=== PATIENT | female | born 1945 | race Caucasian/White ===

== ENCOUNTER → 2018-09-15 11:52 | Outpatient (CLI) | payer OTHER, SELFPAY ==
--- NOTE | 2018-09-15 | DI.MG.S_ITS ---
BILATERAL DIGITAL SCREENING MAMMOGRAM 3D/2D WITH CAD: 09/15/2018 CLINICAL: Routine screening. Family history of breast cancer. Comparison is made to exams dated: 08/26/2017 mammogram, 05/01/2016 mammogram, and 04/12/2015 mammogram - [facility]. There are scattered fibroglandular elements in both breasts. Current study was also evaluated with a Computer Aided Detection (CAD) system. No significant masses, calcifications, or other findings are seen in either breast. There has been no significant interval change. IMPRESSION: NEGATIVE There is no mammographic evidence of malignancy. A 1 year screening mammogram is recommended. This exam was interpreted at Station ID: [id number]. NOTE: For mammograms, a report in lay terms will be sent to the patient. Approximately 15% of breast malignancies will not be visualized mammographically. In the management of a palpable breast mass, a negative mammogram must not discourage biopsy of a clinically suspicious lesion. Electronically Signed By: Hanna condon/domingo:09/15/2018 14:20:53 letter sent: Normal Exam ACR BI-RADS Category 1: Negative 3341F
== END ==
PROVIDERS: Family Provider Family Medicine; PCP Family Medicine; Visit Provider Family Medicine
DX: Z12.31 Encounter for screening mammogram for malignant neoplasm of breast (principal); Z80.3 Family history of malignant neoplasm of breast
CPT/HCPCS: 77063; 77067

== ENCOUNTER 2019-02-25 15:29 | Emergency (ER) | payer OTHER, SELFPAY ==
[2019-02-25 15:50] VITALS: BP 135/79; PULSE 73; RESP 18; TEMP 36.8; O2SAT 99; BMI 26.4
--- NOTE | 2019-02-25 17:44 | DI.RAD.S_ITS ---
PROCEDURE: XR SHOULDER LT MIN 2V INDICATIONS: injury pain TECHNIQUE: 3 views of the shoulder were acquired. COMPARISON: None. FINDINGS: Bones: No fractures or dislocations. No suspicious bony lesions. Visualized ribs appear intact. Soft tissues: No suspicious soft tissue calcifications. There is a questionable radiopacity at the left apex. The lungs are otherwise clear. IMPRESSION: 1. No acute radiographic findings. If pain persists, repeat study in 5-7 days is recommended to exclude occult fracture. 2. Questionable mass at the left apex versus apical scarring. No prior comparisons are available. Consider nonemergent dedicated view of the chest to further characterize this finding. Dictated by: Hanna Tsai M.D. on 02/25/2019 at 18:03 Approved by: Hanna Tsai M.D. on 02/25/2019 at 18:04
--- NOTE | 2019-02-25 17:44 | DI.RAD.S_ITS ---
PROCEDURE: XR HAND LT MIN 3V INDICATIONS: injury, pain TECHNIQUE: 3 views of the hand(s) acquired. COMPARISON: None. FINDINGS: Bones: Severe degenerative changes are present within the interphalangeal joints and the first CMC joint. These most likely represent advanced osteoarthritis; however some erosive changes are also present in the periarticular bones. No acute fracture or dislocation. Soft tissues: No suspicious soft tissue calcifications. IMPRESSION: 1. No acute radiographic findings. If pain persists, repeat study in 5-7 days is recommended to exclude occult fracture. 2. Degenerative changes most likely representing advanced osteoarthritis although a component of erosive arthritis could be considered in the differential. Dictated by: Hanna Tsai M.D. on 02/25/2019 at 18:04 Approved by: Hanna Tsai M.D. on 02/25/2019 at 18:06
[2019-02-25] MEDS: ACETAMINOPHEN 325 MG TABLET 650 MG PO (19:10)
[2019-02-25 19:44] VITALS: BP 142/77; PULSE 57; RESP 15; O2SAT 100
--- NOTE | 2019-02-26 00:58 | ED_ITS ---
HPI - Fall General Chief Complaint: Fall Stated Complaint: GLF, Hit her face, laceration over left eye Time Seen by Provider: 02/25/19 17:56 Source: patient Mode of arrival: ambulatory Limitations: no limitations History of Present Illness HPI Narrative: 73F non smoking female with history of knee pain and hyperlipidemia presents with a mechanical fall resulting in a laceration over her left eye. She has had some numbness in her right foot ever since a knee surgery and her foot got caught on the ground while walking, this caused her to fall forward and strike her forehead on the ground. She has full recall and denies any loss of consciousness nor nausea or vomiting. she has a very minimal headache and denies any focal neurologic findings. She has not taken Coumadin in a few months and has 2 registered, normal INRs in the labs. She was not activated as a modified trauma for this reason. Additionally the patient has a laceration of her left upper lip. It does not cross the vermilion border and is not through and through. When she bites down her teeth all lined up. She states additionally her left hand hurts and there is a bit of swelling on the dorsum of a few of her fingers. Her pain is worse with motion and improves with rest MD complaint: fall Onset (ago): minute(s) Fall from: standing Fall witnessed: yes, by family Place fall occurred: home Loss of consciousness: none Prolonged down time: no Symptoms prior to fall: none Context: tripped/slipped Location of injury: face Related Data Home Medications Medication Instructions Recorded Confirmed ibuprofen 200 mg PO Q6HP #0 02/14/13 01/05/19 aspirin 81 mg tablet,delayed 81 mg PO DAILY 01/05/19 01/05/19 release Previous Rx's Medication Instructions Recorded omeprazole 20 mg PO QDAY #90 tab 05/28/16 fluticasone propionate [Flonase 1 spray INTRANASAL BID #1 bot 10/27/17 Allergy Relief] warfarin 5 mg tablet 5 mg PO DAILY #100 tab 10/04/18 acyclovir 400 mg tablet 400 mg PO SEE INSTRUCTIONS #60 tab 12/03/18 Allergies Allergy/AdvReac Type Severity Reaction Status Date / Time No Known Drug Allergies Allergy Unknown Verified 02/25/19 15:58 [NO KNOWN DRUG ALLERGIES] Review of Systems Constitutional Denies chills, Denies fever(s), Denies lethargy and Denies weakness Eyes Denies change in vision, Denies eye discharge, Denies irritation and Denies loss of vision ENT Ears, Nose, Mouth, and Throat: Denies change in voice, Denies neck pain and Denies sore throat Cardiovascular Denies chest pain, Denies irregular heart rhythm, Denies lightheadedness, Denies palpitations, Denies dyspnea, Denies dyspnea on exertion and Denies orthopnea Respiratory Denies cough, Denies dyspnea, Denies dyspnea on exertion and Denies wheezing Gastrointestinal Gastrointestinal: Denies abdominal pain, Denies change in bowel habits, Denies diarrhea, Denies nausea and Denies vomiting Genitourinary Denies hematuria, Denies flank pain, Denies urinary incontinence and Denies urinary urgency Musculoskeletal Reports joint swelling, Reports limited range of motion and Denies neck pain Integumentary/Breasts Denies pruritus, Denies erythema, Denies rash and Reports wounds Neurologic Denies confusion, Denies loss of vision and Denies weakness Psychiatric Denies anxiety, Denies confusion, Denies depression, Denies homicidal ideation and Denies suicidal ideation Endocrine Denies palpitations Hematologic/Lymphatic Denies easy bruising Allergic/Immunologic Denies wheezing Exam Narrative Exam Narrative: GENERAL: 73-year-old female appears younger than stated age, alert oriented x3, GCS 15 HEAD: A 3 cm deep laceration over left brow. No obvious deformity. No step- off or underlying bony tenderness. minimal active bleeding EYES: Pupils equal round and reactive. Extraocular motions intact. No scleral icterus. No injection or drainage. ENT: 1 cm gaping laceration of the lip without crossing vermilion border Nose without bleeding, purulent drainage or septal hematoma. Throat without erythema, tonsillar hypertrophy or exudate. Uvula midline. Airway patent. NECK: Trachea midline. No JVD or lymphadenopathy. Supple, nontender, no meningeal signs. CARDIOVASCULAR: Regular rate and rhythm without murmurs, gallops, or rubs. RESPIRATORY: Clear to auscultation. Breath sounds equal bilaterally. No wheezes, rales, or rhonchi. GASTROINTESTINAL: Abdomen soft, non-tender, nondistended. No hepato- splenomegaly, or palpable masses. No guarding. EXTREMITIES: Minimal bruising to dorsum of left hand No clubbing, cyanosis, or edema. No joint tenderness, effusion, or edema noted. BACK: Nontender without deformity or crepitance. No flank tenderness. NEURO: AOx3. SKIN: No rash or erythema. Initial Vital Signs Initial Vital Signs: Vital Signs Temperature 98.2 F 02/25/19 15:50 Pulse Rate 73 02/25/19 15:50 Respiratory Rate 18 02/25/19 15:50 Blood Pressure 135/79 02/25/19 15:50 Pulse Oximetry 99 02/25/19 15:50 [facility] Medical History Ankle pain (Chronic ~1999) Eczema (Chronic ~1984) Fibroids (Chronic ~1989) Foot pain (Chronic) GERD (gastroesophageal reflux disease) (Chronic ~2004) Osteoarthritis (Chronic ~1999) Plantar warts (Chronic ~1989) Polymyalgia rheumatica (Chronic ~1997) Recurrent sinusitis (Chronic ~1999) Seasonal allergies (Chronic ~1989) Shoulder pain (Chronic ~1996) Vision disorder (Chronic) Chicken pox (Resolved ~1953) Measles (Resolved ~1952) Mumps (Resolved ~1955) Pneumonia (Resolved ~2006) Rubella (Resolved ~1954) Surgical History Anesthesia (Resolved) History of tonsillectomy (~1952) Status post cholecystectomy (~2010) Status post hysterectomy (~1990) Status post tubal ligation (~1978) Family History (Updated 04/18/15 @ 00:00 by Conversion Provider) Brother Age: 69 Cancer Alcoholic Brother Age: 59 Hypertension Alcoholic Brother Age: 57 History of Klinefelter syndrome Alcoholic Child Age: 40 Hx pulmonary embolism Father Cancer Alcoholic Grandfather Cancer Mother Age: 92 Osteoporosis Hypertension Grandfather Heart disease Alcoholic Grandmother No problems noted. Grandmother No problems noted. Social History Smoking Status: Never smoker Family History Brother Age: 69 Cancer Alcoholic Brother Age: 59 Hypertension Alcoholic Brother Age: 57 History of Klinefelter syndrome Alcoholic Child Age: 40 Hx pulmonary embolism Father Cancer Alcoholic Grandfather Cancer Mother Age: 92 Osteoporosis Hypertension Grandfather Heart disease Alcoholic Grandmother No problems noted. Grandmother No problems noted. Social History (Reviewed 05/04/19 @ 00:59 by NENA Florez Smoking Status: Never smoker Procedures Laceration Repair Laceration 1: Site: face Side (If applicable): left Size (cm): 3 Description: linear Depth: involves muscle layer Local Anesthetic: lidocaine 1% and with bicarb Amount of anesthesia used (mL): 3 Pre-repair: wound explored and irrigated extensively Skin layer closed with: nylon Size (cm): 6-0 Number of sutures: 6 Technique: simple, interrupted Subcutaneous layer closed with: vicryl Size: 5-0 Number of sutures: 2 Technique: simple, interrupted Scores GCS Carmela coma scale eye opening: Spontaneous Fisher coma scale verbal response: Orientated Carmela coma scale motor response: Obey commands Fisher coma scale total score: 15 Course Orders Ordered: ED Orders 02/25/19 17:44 XR hand LT min 3V Stat XR shoulder LT min 2V Stat Discontinued Medications Acetaminophen (Tylenol) 650 mg PO NOW ONE Stop: 02/25/19 19:10 Last Admin: 02/25/19 19:10 Dose: 650 mg Vital Signs - 8 hr 02/25/19 19:44 Pulse Rate 57 L Respiratory Rate 15 Blood Pressure [Left Arm] 142/77 H Pulse Oximetry 100 Discharge Plan Departure Patient Disposition: Home Clinical Impression: Complex laceration of face Qualifiers: Encounter type: initial encounter Qualified Code(s): S01.91XA - Laceration without foreign body of unspecified part of head, initial encounter Laceration of lip Qualifiers: Encounter type: initial encounter Qualified Code(s): S01.511A - Laceration without foreign body of lip, initial encounter Discharge Date/Time: 02/25/19 19:49 Interventions: ED Discharge Assessment Last Done: 02/25/19 19:49 Instructions: DI for Laceration Repair Activity Restrictions/Additional Instructions: Please keep the wound clean and dry to the best of your ability. Please monitor for signs of infection such as redness to the skin or increasing pain. Have the sutures removed by your doctor in about 7 days. If you are unable to get into your doctor, we would be happy to remove the sutures in that same timeframe. Prescriptions: No Action ibuprofen 200 MG tablet 200 mg PO Q6HP Qty: 0 RF: 0 omeprazole 20 MG capsule,delayed release(DR/EC) 20 mg PO QDAY Qty: 90 RF: 3 fluticasone propionate [Flonase Allergy Relief] 9.9 ML spray,suspension 1 spray Intranasal BID Qty: 1 RF: 3 acyclovir [Zovirax] 400 mg tablet 400 mg PO SEE INSTRUCTIONS Qty: 60 RF: 0 warfarin [Coumadin] 5 mg tablet 5 mg PO DAILY Qty: 100 RF: 5 aspirin 81 mg tablet,delayed release (DR/EC) 81 mg PO DAILY RF: 0 Referrals: Dwight Chaney MD [Primary Care Provider] -
== END 2019-02-25 19:49 | disposition home or self-care (01) ==
PROVIDERS: Emergency Provider Emergency Medicine; Family Provider Family Medicine; PCP Family Medicine
DX: S01.112A Laceration without foreign body of left eyelid and periocular area, initial encounter (principal); S01.511A Laceration without foreign body of lip, initial encounter; M79.642 Pain in left hand; W19.XXXA Unspecified fall, initial encounter
CPT/HCPCS: 12052; 73030; 73130; 99283

== ENCOUNTER → 2019-09-28 16:39 | Outpatient (CLI) | payer OTHER, SELFPAY ==
--- NOTE | 2019-09-28 | DI.MG.S_ITS ---
BILATERAL DIGITAL SCREENING MAMMOGRAM 3D/2D WITH CAD: 09/28/2019 CLINICAL: Routine screening. Family history of breast cancer. Comparison is made to exams dated: 09/15/2018 mammogram, 08/26/2017 mammogram, and 05/01/2016 mammogram - Located [facility]. There are scattered fibroglandular elements in both breasts. Current study was also evaluated with a Computer Aided Detection (CAD) system. No significant masses, calcifications, or other findings are seen in either breast. There has been no significant interval change. IMPRESSION: NEGATIVE There is no mammographic evidence of malignancy. A 1 year screening mammogram is recommended. This exam was interpreted at Station ID: [id number]. NOTE: For mammograms, a report in lay terms will be sent to the patient. Approximately 15% of breast malignancies will not be visualized mammographically. In the management of a palpable breast mass, a negative mammogram must not discourage biopsy of a clinically suspicious lesion. Electronically Signed By: Edd doss/domingo:09/28/2019 17:16:30 letter sent: Normal Exam ACR BI-RADS Category 1: Negative 3341F
== END ==
PROVIDERS: Family Provider Family Medicine; PCP Family Medicine; Visit Provider Family Medicine
DX: Z12.31 Encounter for screening mammogram for malignant neoplasm of breast (principal); Z80.3 Family history of malignant neoplasm of breast
CPT/HCPCS: 77063; 77067

== ENCOUNTER → 2020-09-29 13:27 | Outpatient (CLI) | payer OTHER, SELFPAY ==
--- NOTE | 2020-09-29 | DI.MG.S_ITS ---
BILATERAL DIGITAL SCREENING MAMMOGRAM 3D/2D WITH CAD: 09/29/2020 CLINICAL: Routine screening. Family history of breast cancer. Comparison is made to exams dated: 09/28/2019 mammogram, 09/15/2018 mammogram, and 08/26/2017 mammogram - [facility]. There are scattered fibroglandular elements in both breasts. Current study was also evaluated with a Computer Aided Detection (CAD) system. There is a stable benign focal asymmetry in the left breast. There also are benign calcifications in the right breast. Additionally, there are stable benign calcifications in the left breast. No significant masses, calcifications, or other findings are seen in either breast. There has been no significant interval change. IMPRESSION: BENIGN There is no mammographic evidence of malignancy. A 1 year screening mammogram is recommended. This exam was interpreted at Station ID: [id number]. NOTE: For mammograms, a report in lay terms will be sent to the patient. Approximately 15% of breast malignancies will not be visualized mammographically. In the management of a palpable breast mass, a negative mammogram must not discourage biopsy of a clinically suspicious lesion. Electronically Signed By: Luca Cummings acr/domingo:09/30/2020 18:07:25 letter sent: Normal Exam ACR BI-RADS Category 2: Benign Finding(s) 3342F
== END ==
PROVIDERS: Family Provider Family Medicine; PCP Family Medicine; Referring Provider Family Medicine; Visit Provider Family Medicine
DX: Z12.31 Encounter for screening mammogram for malignant neoplasm of breast (principal); Z80.3 Family history of malignant neoplasm of breast
CPT/HCPCS: 77063; 77067

== ENCOUNTER → 2020-10-17 10:17 | Outpatient (CLI) | payer OTHER, SELFPAY ==
[2020-10-17 11:40] LABS: Alanine Aminotransferase 18 IU/L (<35); Albumin Globulin Ratio 1.7 (1.0-2.8); Alkaline Phosphatase 69 U/L (38-126); Aspartate Aminotransferase 26 IU/L (14-36); BUN Creatinine Ratio 26.5 (6-22); Bilirubin Total 0.5 mg/dL (0.2-1.3); Blood Urea Nitrogen 18 mg/dL (7-17); Calcium 9.7 mg/dL (8.4-10.2); Carbon Dioxide 29 mmol/L (22-32); Chloride 106 mmol/L (98-107); Cholesterol 184 mg/dL (140-199); Estimated Glomerular Filt Rate > 60.0 mL/min (>60); Globulin 2.4 g/dL (1.7-4.1); Glucose 95 mg/dL (80-110); HDL Cholesterol 64 mg/dL (40-60); HEMOLYSIS < 15 (0-50); LDL Cholesterol Calculated 105 mg/dL (<100); Potassium 4.4 mmol/L (3.4-5.1); Sodium 139 mmol/L (137-145); Total Protein 6.4 g/dL (6.3-8.2); Triglycerides 77 mg/dL (35-150)
== END ==
PROVIDERS: Family Provider Family Medicine; PCP Family Medicine; Referring Provider Family Medicine; Visit Provider Family Medicine
DX: E78.2 Mixed hyperlipidemia (principal); B00.1 Herpesviral vesicular dermatitis
CPT/HCPCS: 36415; 80053; 80061

== ENCOUNTER → 2020-11-16 10:09 | Outpatient (CLI) | payer OTHER, SELFPAY ==
[2020-11-16 11:24] LABS: COVID19 -Nasal RAPID Negative (Negative)
== END ==
PROVIDERS: Family Provider Family Medicine; PCP Family Medicine; Visit Provider Surgery
DX: Z20.822 Contact with and (suspected) exposure to COVID-19 (principal); Z01.812 Encounter for preprocedural laboratory examination
CPT/HCPCS: 87635; C9803

== ENCOUNTER 2020-11-19 09:52 | Day surgery (SDC) | payer OTHER, SELFPAY ==
[2020-11-19] VITALS (8 sets, daily range): BP systolic 115–138; BP diastolic 56–82; PULSE 50–81; RESP 10–18; TEMP 36.1–36.7; O2SAT 95–100; BMI 28.3
[2020-11-19] MEDS: LACTATED RINGERS 1,000 ML 200 ML IV ×2 (10:22→12:35)
--- NOTE | 2020-11-19 10:45 | PM.PREOP ---
Pre-operative Note COVID-19 COVID-19 status: Negative Interval Note History & Physical reviewed/Exam performed by Physician: Yes Changes to H&P: No
[2020-11-19] MEDS: LIDOCAINE 4% SOLN 50 ML 20 ML TOP (10:51)
[2020-11-19] MEDS: ONDANSETRON 4 MG/2 ML INJ IV ×2 (10:51→11:10)
[2020-11-19] MEDS: fentaNYL 250 MCG/5 ML INJ IV (10:53)
[2020-11-19] MEDS: MIDAZOLAM 5 MG/5 ML VIAL IV (10:53)
[2020-11-19] MEDS: FLUMAZENIL 0.5 MG/5 ML MDV 0.2 MG IV (10:59)
[2020-11-19] MEDS: NALOXONE 1 MG/ML SYRINGE 2 MG IV (11:00)
--- NOTE | 2020-11-19 11:11 | SUR.OPER ---
PATIENTS OXYGEN SATURATIONS DROPPED TO 55% VIA NC, O2 WAS INCREASED, VERBAL STIMUOLATION, 6MM NASAIL AIRWAY WAS PLACED ALONG WITH ORAL, PATIENT WAS AMBU BAGGED, RAPID RESPONSE WAS CALLED TO ENDO, REVERSAL MEDICATIONS GIVEN SEE DEC, OXYGEN SATS INCREASED INTO 90'S AND PATIENT STARTED TO WAKE UP AND RESPOND, ABLE TO MOVE ALL EXPREMITIES, LUNG SOUNDS ARE CLEAR. O2 VIA CANNULA AT 5L PLACED SATS REMAIN IN UPPER 90'S. ANESTHESIA IN ROOM AT THIS TIME.
--- NOTE | 2020-11-19 12:15 | PM.OP.ENDO ---
Operative Date/Time/Diagnoses Date of procedure: 11/19/20 Time of procedure: 12:15 Pre-op diagnosis: dysphagia Post-op diagnosis: other (esopageal ulcer, esophgeal stricture) Procedure & Clinicians Study performed: Esophagoduodenoscopy Esophageal dilatation Same procedure as scheduled: Yes Indications: 74-year-old woman history of GERD with development of dysphagia here for EGD Surgeon: Hung Choe Procedure Notes Procedure in detail: Patient placed in left lateral decubitus position. Time out was performed. Procedural sedation was administered with Versed and Fentanyl. A bite block was placed. The patient had a brief period of hypoxia less than 1 minute and required narcan and flumazenil for reversal. A rapid response was called and anesthesia then provided sedation. the scope was inserted into the mouth. There was notable resistance trying to intubate the cervical esophagus. I switched to the bronchoscope to decrease the resistance, which did pass easily into the esophagus. Subseqeuntyl the EGD scope was comfortably intubated into the esophagus. There was no esopahgeal mass or otherwise abdnormality at the cervical esophagus. The stomach was entered notable for numerous hyperplastic gastric polyps throughout. The pylorus was intubated and the duodenum was normal to the 2nd portion. The scope was retroflexed within the stomach and there was a small hiatal hernia. No ulcers, or gastritis. The scope was withdrawn into the esophagus the Z line was seen at 30 cm from the incisions. There was a Schazchi ring the EGD scope narrowly accommodated it. Biopsy of the GE junction were taken with the forceps. The stricture was dilated under direct visualization to 20 mm H20. Stomach was deflated and scope removed. Patient tolerated procedure well. 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
[2020-11-19] MEDS: METOCLOPRAMIDE 10 MG/2 ML INJ IV (12:33)
--- NOTE | 2020-11-19 13:34 | SUR.PHASEI ---
Late entry: Pt arrived, suctioned for moderate amount of blood-tinged sputum. Pt nauseated, dry heaving, Dr. Choe made aware, Reglan given, queaze ease to bedside, cool wash cloth to forehead. Nausea dry heaves resolved. c/o sore throat, ice chips make discomfort tolerable.
--- NOTE | 2020-11-19 13:56 | SUR.PHASEII ---
Pt met criteria for discharge: VSS, denied significant pain or any nausea, able to drink fluids without difficulty. Discharge instructions discussed with patient, all questions answered. Transported via W/C to private vehicle.
== END 2020-11-19 13:48 | disposition home or self-care (01) ==
PROVIDERS: Family Provider Family Medicine; PCP Family Medicine; Referring Provider Surgery; Visit Provider Surgery
PROC: 0DJ08ZZ Inspection of Upper Intestinal Tract, Via Natural or Artificial Opening Endoscopic (ICD-10-PCS; CPT 43235; principal; 2020-11-19 10:45)
DX: R13.10 Dysphagia, unspecified (principal); K21.9 Gastro-esophageal reflux disease without esophagitis; K44.9 Diaphragmatic hernia without obstruction or gangrene; K22.2 Esophageal obstruction; K22.10 Ulcer of esophagus without bleeding
CPT/HCPCS: 43239; J2250; J2310; J2405; J2765; J3010

== ENCOUNTER → 2021-10-05 12:34 | Outpatient (CLI) | payer OTHER, SELFPAY ==
--- NOTE | 2021-10-05 | DI.MG.S_ITS ---
BILATERAL DIGITAL SCREENING MAMMOGRAM 3D/2D WITH CAD: 10/05/2021 CLINICAL: Routine screening. Family history of breast cancer. Comparison is made to exams dated: 09/29/2020 mammogram, 09/28/2019 mammogram, and 09/15/2018 mammogram - [facility]. There are scattered fibroglandular elements in both breasts. Current study was also evaluated with a Computer Aided Detection (CAD) system. There is a stable benign focal asymmetry in the left breast. There also are benign calcifications in the right breast. Additionally, there are stable benign calcifications in the left breast. No significant masses, calcifications, or other findings are seen in either breast. There has been no significant interval change. IMPRESSION: BENIGN There is no mammographic evidence of malignancy. A 1 year screening mammogram is recommended. This exam was interpreted at Station ID: [id number]. NOTE: For mammograms, a report in lay terms will be sent to the patient. Approximately 15% of breast malignancies will not be visualized mammographically. In the management of a palpable breast mass, a negative mammogram must not discourage biopsy of a clinically suspicious lesion. Electronically Signed By: Edd doss/domingo:10/07/2021 07:45:07 letter sent: Normal Exam ACR BI-RADS Category 2: Benign Finding(s) 3342F
== END ==
PROVIDERS: Family Provider Family Medicine; PCP Family Medicine; Referring Provider Family Medicine; Visit Provider Family Medicine
DX: Z12.31 Encounter for screening mammogram for malignant neoplasm of breast (principal); Z80.3 Family history of malignant neoplasm of breast
CPT/HCPCS: 77063; 77067

== ENCOUNTER → 2022-08-12 11:11 | Outpatient (CLI) | payer OTHER, SELFPAY ==
[2022-08-12 12:10] LABS: Add Manual Diff / Slide Review NO; Basophils Absolute Auto 0 /uL (0-100); Basophils Percent Auto 0.6 % (0-2); Eosinophils Absolute Auto 100 /uL (0-450); Eosinophils Percent Auto 1.3 % (2-4); Hemoglobin 13.6 g/dL (12.0-16.0); Lymphocytes Absolute Auto 1600 /uL (1100-4500); Lymphocytes Percent Auto 34.8 % (25-40); Mean Corpuscular HGB Conc 33.1 % (30-36); Mean Corpuscular Hemoglobin 28.9 PG (26-34); Mean Corpuscular Volume 87.2 fL (80-100); Monocytes Absolute Auto 400 /uL (0-900); Monocytes Percent Auto 7.6 % (3-14); Neutrophils Absolute Auto 2600 /uL (1500-7000); Neutrophils Percent Auto 55.7 % (50-75); Platelet Count 188 X10^3/uL (150-400); Red Cell Distribution Width 13.7 % (11.6-14.8); White Blood Cell Count 4.7 X10^3/uL (4.5-11.0)
[2022-08-12 12:54] LABS: Alanine Aminotransferase 17 IU/L (<35); Albumin 4.1 g/dL (3.5-5.0); Albumin Globulin Ratio 1.6 (1.0-2.8); Alkaline Phosphatase 73 U/L (38-126); Aspartate Aminotransferase 25 IU/L (14-36); BUN Creatinine Ratio 22.4 (6-22); Bilirubin Total 0.5 mg/dL (0.2-1.3); Blood Urea Nitrogen 17 mg/dL (7-17); Calcium 9.3 mg/dL (8.4-10.2); Carbon Dioxide 27 mmol/L (22-32); Chloride 104 mmol/L (98-107); Cholesterol 185 mg/dL (140-199); Estimated Glomerular Filt Rate > 60 mL/min (>60); Globulin 2.6 g/dL (1.7-4.1); Glucose 94 mg/dL (80-110); HDL Cholesterol 60 mg/dL (40-60); HEMOLYSIS < 15 (0-50); LDL Cholesterol Calculated 114 mg/dL (<100); Potassium 4.4 mmol/L (3.4-5.1); Sodium 140 mmol/L (137-145); Total Protein 6.7 g/dL (6.3-8.2); Triglycerides 56 mg/dL (35-150)
== END ==
PROVIDERS: Family Provider Family Medicine; PCP Family Medicine; Referring Provider Family Medicine; Visit Provider Family Medicine
DX: E78.2 Mixed hyperlipidemia (principal); H11.32 Conjunctival hemorrhage, left eye; I82.409 Acute embolism and thrombosis of unspecified deep veins of unspecified lower extremity; K21.9 Gastro-esophageal reflux disease without esophagitis
CPT/HCPCS: 36415; 80053; 80061; 85025

== ENCOUNTER → 2022-08-25 14:00 | Outpatient (CLI) | payer OTHER, SELFPAY ==
--- NOTE | 2022-08-25 14:01 | DI.RAD.S_ITS ---
PROCEDURE: XR HIP W PEL IF DONE LT 2V INDICATIONS: left knee and hip pain TECHNIQUE: AP pelvis with lateral view(s) of the left hip(s). COMPARISON: None. FINDINGS: Bones: No fractures or dislocations. Moderate joint space narrowing bilaterally. There is acetabular roof sclerosis. There is osteophytosis. This is slightly worse of the left hip compared to the right. Pelvic ring appears intact. No suspicious bony lesions. Soft tissues: The visualized bowel gas pattern is normal. No suspicious soft tissue calcifications. IMPRESSION: Severe left hip DJD. Dictated by: Shaun Ambrosio M.D. on 08/25/2022 at 13:40 Approved by: Shaun Ambrosio M.D. on 08/25/2022 at 13:41
--- NOTE | 2022-08-25 14:01 | DI.RAD.S_ITS ---
PROCEDURE: XR KNEE LT 3V INDICATIONS: left knee and hip pain TECHNIQUE: 3 views of the knee were acquired. COMPARISON: [facility], , KNEE 3V RIGHT, 10/27/2017, 14:52. [facility], KNEE 1-2 VIEWS LEFT, 03/18/2010, 13:52. FINDINGS: Bones: No fractures or dislocations. Moderate to severe joint space narrowing. Tricompartmental osteophytosis. These findings are progressed compared to 2009. No suspicious bony lesions. Soft tissues: No joint effusion. No suspicious soft tissue calcifications. IMPRESSION: Severe left knee DJD most pronounced in the medial and patellar compartments. Dictated by: Shaun Ambrosio M.D. on 08/25/2022 at 13:37 Approved by: Shaun Ambrosio M.D. on 08/25/2022 at 13:39
== END ==
PROVIDERS: Family Provider Family Medicine; PCP Family Medicine; Referring Provider Family Medicine; Visit Provider Family Medicine
DX: M17.12 Unilateral primary osteoarthritis, left knee (principal); M16.12 Unilateral primary osteoarthritis, left hip; M25.562 Pain in left knee; M25.552 Pain in left hip; G89.29 Other chronic pain
CPT/HCPCS: 73502; 73562

== ENCOUNTER → 2022-09-27 18:33 | Outpatient (CLI) | payer OTHER, SELFPAY ==
[2022-09-27 19:31] LABS: COVID-19 CEPHEID 4-PLEX PCR POSITIVE (Negative); Influenza A - CEPHEID Flu A NEGATIVE (NEGATIVE); Influenza B - CEPHEID Flu B NEGATIVE (NEGATIVE); Respiratory Syncytial Virus Negative (Negative)
== END ==
PROVIDERS: Family Provider Family Medicine; PCP Family Medicine; Visit Provider Physician Assistant
DX: U07.1 COVID-19 (principal); R50.9 Fever, unspecified; Z20.822 Contact with and (suspected) exposure to COVID-19
CPT/HCPCS: 0241U

== ENCOUNTER → 2022-10-06 11:43 | Outpatient (CLI) | payer OTHER, SELFPAY ==
--- NOTE | 2022-10-06 11:44 | DI.MG.S_ITS ---
BILATERAL DIGITAL SCREENING MAMMOGRAM 3D/2D WITH CAD: 10/06/2022 CLINICAL: Routine screening. Family history of breast cancer. Comparison is made to exams dated: 10/05/2021 mammogram, 09/29/2020 mammogram, 09/28/2019 mammogram, 09/15/2018 mammogram, and 08/26/2017 mammogram - [facility]. There are scattered areas of fibroglandular density in both breasts (category b / 25%-50% glandular tissue). Current study was also evaluated with a Computer Aided Detection (CAD) system. There are benign calcifications in both breasts. No significant masses, calcifications, or other findings are seen in either breast. There has been no significant interval change. IMPRESSION: BENIGN There is no mammographic evidence of malignancy. A 1 year screening mammogram is recommended. Based on the Tyrer Cuzick model (a risk assessment model) the patient's lifetime risk is 4.9% and her 10 year risk is 4.9%. According to the ACR, ACS, and NCCN guidelines, an annual breast MRI exam along with mammogram is recommended if the patient's lifetime risk is 20% or greater. This exam was interpreted at Station ID: [id number]. NOTE: For mammograms, a report in lay terms will be sent to the patient. Approximately 15% of breast malignancies will not be visualized mammographically. In the management of a palpable breast mass, a negative mammogram must not discourage biopsy of a clinically suspicious lesion. Electronically Signed By: Shaun cline/domingo:10/06/2022 12:34:25 letter sent: Normal Exam ACR BI-RADS Category 2: Benign Finding(s) 3342F
== END ==
PROVIDERS: Family Provider Family Medicine; PCP Family Medicine; Referring Provider Family Medicine; Visit Provider Family Medicine
DX: Z12.31 Encounter for screening mammogram for malignant neoplasm of breast (principal); Z80.3 Family history of malignant neoplasm of breast
CPT/HCPCS: 77063; 77067

== ENCOUNTER 2023-04-28 12:23 | Emergency (ER) | payer OTHER, SELFPAY ==
[2023-04-28] VITALS (12 sets, daily range): BP systolic 135–157; BP diastolic 62–72; PULSE 55–70; RESP 14–18; TEMP 36.5; O2SAT 96–100
--- NOTE | 2023-04-28 12:31 | DI.CT.S_ITS ---
PROCEDURE: CT FACIAL BONES WO CON INDICATIONS: fall with head injury/facial injury TECHNIQUE: Noncontrast 2.5 mm thick axial images acquired from the mandible through the frontal sinuses, with coronal and sagittal reformatting. For radiation dose reduction, the following was used: automated exposure control, adjustment of mA and/or kV according to patient size. COMPARISON: [facility], CT, SINUS WITHOUT CONTRAST, 11/21/2011, 8:07. FINDINGS: Image quality: Excellent. Bones and teeth: At the tip of the zygoma there is a 4 mm x 3 mm bone density which could be an acute fracture, however is likely not acute. No prior imaging is available for comparison. Orbital miller are intact. Sinus miller show no fracture or deformity. Nasal bones and septum are intact. Visualized portions of the mandible demonstrate no fractures or subluxation. Zygomatic arches are intact. Pterygoid plates are intact. Visualized portions of the skull base and auditory canals are intact. Sinuses: Paranasal sinuses are aerated, without fluid levels, mucosal thickening, or mucoceles. Mastoid air cells are aerated. Soft tissues: No edema, masses, or fluid collections. No enlarged lymph nodes. No soft tissue lacerations or debris. Vascular: Visualized vascular structures appear normal in the absence of contrast. Bony vascular foramina and canals are intact. IMPRESSION: 1. No acute traumatic abnormality of the facial bones. 2. 4 x 3 mm bone density superior to the odontoid is probably chronic, but could be an avulsion fracture of the tip of the odontoid. Please correlate with neck pain. Dictated by: Luca Cummings M.D. on 04/28/2023 at 13:11 Approved by: Luca Cummings M.D. on 04/28/2023 at 13:18
--- NOTE | 2023-04-28 12:31 | DI.CT.S_ITS ---
PROCEDURE: CT HEAD/BRAIN WO CON INDICATIONS: fall with head injury, headache TECHNIQUE: Noncontrast 4.5 mm thick angled axial sections acquired from the foramen magnum to the vertex, with coronal and sagittal reformats. For radiation dose reduction, the following was used: automated exposure control, adjustment of mA and/or kV according to patient size. COMPARISON: None. FINDINGS: Image quality: Excellent. CSF spaces: Basal cisterns are patent. No extra-axial fluid collections. Ventricles are normal in size and shape. Brain: No midline shift. No intracranial masses or hemorrhage. Santo-white matter interface is normal. Skull and face: Calvarium and visualized facial bones are intact, without suspicious lesions. Sinuses: Visualized sinuses and mastoids are clear. IMPRESSION: No acute intracranial abnormality. Dictated by: Luca Cummings M.D. on 04/28/2023 at 13:10 Approved by: Luca Cummings M.D. on 04/28/2023 at 13:11
--- NOTE | 2023-04-28 12:35 | DI.RAD.S_ITS ---
PROCEDURE: XR KNEE LT 3V INDICATIONS: fall with pain TECHNIQUE: 3 views of the knee were acquired. COMPARISON: [facility], , XR KNEE LT 3V, 08/25/2022, 14:01. FINDINGS: Bones: Severe degenerative arthritis involving 3 compartments, with bulky osteophytes and severe medial compartment joint space loss and lateral patellofemoral joint space obliteration. Soft tissues: No joint effusion. No suspicious soft tissue calcifications. IMPRESSION: 1. Severe degenerative arthritis of the left knee. No acute bony abnormality identified. Dictated by: Pawel Gomez M.D. on 04/28/2023 at 13:03 Approved by: Pawel Gomez M.D. on 04/28/2023 at 13:04
--- NOTE | 2023-04-28 12:48 | ED.FALL ---
HPI - Fall General Chief Complaint: Fall Stated Complaint: fell on face/hurt knee/head pain Time Seen by Provider: 04/28/23 12:28 Source: patient Mode of arrival: Ambulatory History of Present Illness HPI Narrative: 77-year-old female nonsmoker presents with her in the chief complaint of a ground level fall in which she fell forward and struck her face. She denies prodromal symptoms such as dizziness, weakness or lightheadedness. She states that she was walking and tripped on a curb. She denies loss of consciousness, blurred vision, trouble with speech. She is had no vomiting. She suffered a laceration of her lower lip and chipped a tooth. She is otherwise well and free of complaint Related Data Previous Rx's Medication Instructions Recorded fluticasone propionate 50 1 spray intranasal BID ##1 10/27/17 mcg/actuation nasal spray,suspension (Flonase Allergy Relief) acyclovir 400 mg tablet 400 mg PO SEE INSTRUCTIONS #60 tabs 09/08/22 omeprazole 20 mg capsule,delayed See Rx Instructions .Route 09/08/22 release .COMPLEX #180 caps Allergies Allergy/AdvReac Type Severity Reaction Status Date / Time No Known Drug Allergies Allergy Unknown Verified 04/28/23 12:31 [NO KNOWN DRUG ALLERGIES] Review of Systems Review of Systems Narrative: GENERAL: See HPI HEENT: See HPI RESPIRATORY: Denies dyspnea, cough, wheezing, hemoptysis, sputum. CARDIOVASCULAR: Denies chest pain, palpitations, orthopnea, edema, GASTROINTESTINAL: Denies nausea, vomiting, abdominal pain, diarrhea, constipation, melena. : Denies dysuria, frequency, incontinence, hematuria, urinary retention. MUSCULOSKELETAL: denies weakness, joint pain, or bony pain SKIN: Denies rash, skin lesions, or other NEUROLOGIC: Denies weakness, headache, numbness, change in speech, confusion, seizures, incoordination. PSYCHIATRIC: No concerning psychosocial issues. 12 point review of systems is negative except for those stated above Patient History Medical History Ankle pain (~1999) Chicken pox (~1953) COVID-19 Eczema (~1984) Fibroids (~1989) Foot pain GERD (gastroesophageal reflux disease) (~2004) Herpes labialis Measles (~1952) Mumps (~1955) Osteoarthritis (~1999) Plantar warts (~1989) Pneumonia (~2006) Polymyalgia rheumatica (~1997) Recurrent sinusitis (~1999) Rubella (~1954) Seasonal allergies (~1989) Shoulder pain (~1996) Vision disorder Surgical History Anesthesia History of tonsillectomy (~1952) Status post cholecystectomy (~2010) Status post hysterectomy (~1990) Status post tubal ligation (~1978) Family History Brother Age: 74 Cancer Alcoholic Brother Age: 64 Hypertension Alcoholic Brother Age: 62 History of Klinefelter syndrome Alcoholic Child Age: 45 Hx pulmonary embolism Father Cancer Alcoholic Grandfather Cancer Mother Age: 97 Osteoporosis Hypertension Grandfather Heart disease Alcoholic Grandmother No problems noted. Grandmother No problems noted. Social History marital status: household members: spouse Smoking Status: Never smoker alcohol intake: current Smoking Status: Never smoker alcohol intake frequency: a few times a month Substance Use Type: does not use Exam Narrative Exam Narrative: GENERAL: [77] year old patient appears stated age. Well-developed patient, in mild distress. GCS 15 HEAD: Atraumatic. Normocephalic. EYES: Pupils equal round and reactive. Extraocular motions intact. No scleral icterus. No injection or drainage. ENT: 1 cm laceration crossing the vermilion border of the right lower lip. She has a chipped right upper central incisor. Nose without bleeding, purulent drainage. Throat without erythema, tonsillar hypertrophy or exudate. Airway patent. NECK: Trachea midline. Non tender CARDIOVASCULAR: Regular rate and rhythm without murmurs, gallops, or rubs. RESPIRATORY: Clear to auscultation. Breath sounds equal bilaterally. No wheezes, rales, or rhonchi. GASTROINTESTINAL: Abdomen soft, non-tender, nondistended. EXTREMITIES: No edema or joint tenderness. BACK: Nontender without deformity or crepitance. No flank tenderness. NEURO: AOx3. SKIN: No rash or erythema of visible areas Initial Vital Signs Initial Vital Signs: Vital Signs Temperature 97.7 F 04/28/23 12:29 Pulse Rate 70 04/28/23 12:29 Respiratory Rate 18 04/28/23 12:29 Blood Pressure 146/72 H 04/28/23 12:29 Pulse Oximetry 99 04/28/23 12:29 Oxygen Delivery Method Room Air 04/28/23 12:29 Procedures Laceration Repair Laceration 1: Site: lip Side (If applicable): right Size (cm): 1.0 Description: stellate Depth: simple, single layer Local Anesthetic: lidocaine 1% Amount of anesthesia used (mL): 3 Pre-repair: wound explored and cleansed with chlorhexadine Skin layer closed with: nylon Skin layer suture size: 6-0 Number of sutures: 3 Technique: simple, interrupted Subcutaneous layer closed with: vicryl Subcutaneous layer suture size: 5-0 Number of sutures: 3 Technique: simple, interrupted Course Orders Ordered: ED Orders 04/28/23 12:31 CT facial bones wo con Stat CT head/brain wo con Stat 04/28/23 12:35 XR knee LT 3V Stat 04/28/23 14:51 CT cervical spine wo con Stat Discontinued Medications Diphtheria/Tetanus/Acell Pertussis (Tet,Diph,Pertuss(Acell),Vac/Pf 0.5 Ml Syringe) 0.5 ml IM .ONCE ONE Stop: 04/28/23 12:37 Last Admin: 04/28/23 13:24 Dose: 0.5 ml Documented By: GUILLERMINA Vital Signs Vital signs: Vital Signs - 8 hr 04/28/23 12:29 04/28/23 13:42 04/28/23 13:43 Temperature 97.7 F Pulse Rate 70 59 L 55 L Respiratory Rate 18 Blood Pressure 146/72 H Pulse Oximetry 99 98 96 Oxygen Delivery Method Room Air 04/28/23 13:43 04/28/23 14:00 04/28/23 14:01 Temperature Pulse Rate 62 62 Respiratory Rate 16 Blood Pressure 137/69 Pulse Oximetry 98 98 Oxygen Delivery Method Room Air 04/28/23 14:01 04/28/23 14:30 04/28/23 14:30 Temperature Pulse Rate 68 Respiratory Rate Blood Pressure 157/72 H 148/70 H Pulse Oximetry 99 Oxygen Delivery Method 04/28/23 15:00 04/28/23 15:03 04/28/23 15:03 Temperature Pulse Rate 58 L 59 L Respiratory Rate 14 Blood Pressure 153/67 H Pulse Oximetry 100 100 Oxygen Delivery Method Room Air 04/28/23 15:30 04/28/23 15:30 04/28/23 16:00 Temperature Pulse Rate 67 64 Respiratory Rate Blood Pressure 143/63 H Pulse Oximetry 99 98 Oxygen Delivery Method 04/28/23 16:01 04/28/23 16:01 Temperature Pulse Rate 65 Respiratory Rate Blood Pressure 135/65 Pulse Oximetry 98 Oxygen Delivery Method MDM - Fall MDM Narrative Medical decision making narrative: [77] year old patient presents with Multiple etiologies for patient's symptoms considered including, but not limited to: [] Prior Charts reviewed in our EMR Primary Historian: patient Labs reviewed and interpreted by myself: Imaging reviewed: CT of head, C-spine and facial bones unremarkable Patient's symptoms improved over duration of stay with above-stated therapies. Findings and discharge diagnosis discussed with patient/family followed by verbalization of understanding Return precautions discussed with patient/family whom verbalize understanding of diagnosis and plan Discharge Plan Departure Patient Disposition: Home Clinical Impression: Complicated laceration of lip, Contusion of knee, Fracture, tooth Instructions: How to Prevent Falls Activity Restrictions/Additional Instructions: *You have been diagnosed with [fall with lip laceration and dental fracture. As we discussed your imaging is reassuring there is no evidence of fracture or dislocation.] *What to do: *Please continue to take your regular medications as directed. [ ] New medication prescriptions sent to your pharmacy: [ ] [ ] New medication written as a paper prescription [ ] No new medications given *Please follow up with your primary care dental provider in 2-3 days, call for an appointment. Let them know you were seen in the Emergency Department and that we ask that you be seen in follow up. Please keep the wound clean and dry to the best of your ability. Please monitor for signs of infection such as redness to the skin or increasing pain. Have the sutures/neil removed by your doctor in about 7 days. If you are unable to get into your doctor, we would be happy to remove the sutures/neil in that same timeframe. *Return to Emergency Department if you should have any new, worsening or concerning symptoms, such as [fever greater than 101 F, shaking chills, worsening pain, persistent vomiting or other bothersome symptoms] Prescriptions: No Action fluticasone propionate [Flonase Allergy Relief] 9.9 ML spray,suspension 1 spray Intranasal BID Qty: 1 3RF omeprazole 20 mg capsule,delayed release(DR/EC) See Rx Instructions .ROUTE .COMPLEX Qty: 180 3RF Dose Instruction: TAKE 1 CAPSULE BY MOUTH TWICE DAILY Rx Instructions: TAKE 1 CAPSULE BY MOUTH TWICE DAILY acyclovir 400 mg tablet 400 mg PO SEE INSTRUCTIONS Qty: 60 0RF Rx Instructions: Take 2 tablets daily for 5 days. Referrals: Moiz Boss MD [Primary Care Provider] - Stand Alone Forms: Patient Portal/API
[2023-04-28] MEDS: TET,DIPH,PERTUSS(ACELL),VAC/PF 0.5 ML SYRINGE IM (13:24)
--- NOTE | 2023-04-28 14:51 | DI.CT.S_ITS ---
PROCEDURE: CT CERVICAL SPINE WO CON INDICATIONS: abnormal appearance of odontoid on facial CT TECHNIQUE: Noncontrast 3 mm thick sections acquired from the skull base to the T4 level. Sagittal and coronal reformats were then constructed. For radiation dose reduction, the following was used: automated exposure control, adjustment of mA and/or kV according to patient size. COMPARISON: None. FINDINGS: Image quality: Excellent. Bones: No fractures or dislocations. Visualized superior ribs are intact. Facet arthrosis of the cervical spine. Grade 1 anterolisthesis of C4-5. Disc space narrowing of C5-6 and C6-7. At the tip of the odontoid there is 3 x 4 mm bone density which appears to be corticated as well as the tip of the odontoid which also appears to be well corticated suggesting this is likely not an acute fracture, probably an remote fracture of the osteophyte. There is no surrounding inflammation or hematoma.. Soft tissues: Prevertebral soft tissues are normal in thickness. No paravertebral hematomas. No apical pneumothoraces. IMPRESSION: 1. 4 x 3 mm bone density described on facial series is probably not acute given the corticated appearance. 2. Multilevel degenerative disc disease. 3. No other acute abnormality. Dictated by: Luca Cummings M.D. on 04/28/2023 at 15:33 Approved by: Luca Cummings M.D. on 04/28/2023 at 15:36
== END 2023-04-28 16:55 | disposition home or self-care (01) ==
PROVIDERS: Emergency Provider Emergency Medicine; Family Provider Family Medicine; PCP Family Medicine
DX: S01.511A Laceration without foreign body of lip, initial encounter (principal); S80.02XA Contusion of left knee, initial encounter; S02.5XXA Fracture of tooth (traumatic), initial encounter for closed fracture; W18.30XA Fall on same level, unspecified, initial encounter; Z23 Encounter for immunization
CPT/HCPCS: 12011; 70450; 70486; 72125; 73562; 90471; 99284; 90715

== ENCOUNTER → 2023-08-03 15:28 | Outpatient (CLI) | payer OTHER, SELFPAY | PROVIDERS: Family Provider Family Medicine; PCP Family Medicine; Visit Provider Physician Assistant | DX: R30.0 Dysuria (principal) | CPT/HCPCS: 87077; 87086; 87186 ==

== ENCOUNTER → 2023-09-06 12:30 | Outpatient (CLI) | payer OTHER, SELFPAY ==
[2023-09-06 13:47] LABS: Influenza A - CEPHEID Flu A NEGATIVE (NEGATIVE); Influenza B - CEPHEID Flu B NEGATIVE (NEGATIVE); Respiratory Syncytial Virus Negative (Negative)
[2023-09-06 13:50] LABS: COVID-19 CEPHEID 4-PLEX PCR Negative (Negative)
== END ==
PROVIDERS: Family Provider Family Medicine; PCP Family Medicine; Visit Provider Physician Assistant
DX: R05.9 Cough, unspecified (principal); R50.9 Fever, unspecified
CPT/HCPCS: 0241U

== ENCOUNTER → 2023-09-06 12:32 | Outpatient (CLI) | payer OTHER, SELFPAY ==
--- NOTE | 2023-09-06 12:34 | DI.RAD.S_ITS ---
PROCEDURE: XR CHEST 2V INDICATIONS: Cough x 4 weeks TECHNIQUE: 2 views of the chest were acquired. COMPARISON: None. FINDINGS: Surgical changes and devices: None. Lungs and pleura: Lungs are clear. No pleural effusions or pneumothorax. Mediastinum: The cardiac contours are within normal limits. The aorta demonstrates calcification and tortuosity. Bones and chest wall: Age-appropriate bony degenerative changes are seen. Accentuated thoracic kyphosis is seen. No suspicious bony abnormalities. Soft tissues appear unremarkable. IMPRESSION: No acute cardiopulmonary abnormality is seen. Macrophage trace Dictated by: Amaury Polanco M.D. on 09/06/2023 at 20:22 Approved by: Amaury Polanco M.D. on 09/06/2023 at 20:23
== END ==
PROVIDERS: Family Provider Family Medicine; PCP Family Medicine; Visit Provider Urology
DX: R05.9 Cough, unspecified (principal); R50.9 Fever, unspecified
CPT/HCPCS: 0241U; 71046

== ENCOUNTER → 2023-09-29 11:18 | Outpatient (CLI) | payer OTHER, SELFPAY ==
[2023-09-29 12:25] LABS: Add Manual Diff / Slide Review NO; Basophils Absolute Auto 0 /uL (0-100); Basophils Percent Auto 0.5 % (0-2); Eosinophils Absolute Auto 100 /uL (0-450); Eosinophils Percent Auto 1.4 % (2-4); Hematocrit 40.2 % (36-46); Hemoglobin 13.6 g/dL (12.0-16.0); Lymphocytes Absolute Auto 1600 /uL (1100-4500); Lymphocytes Percent Auto 36.1 % (25-40); Mean Corpuscular HGB Conc 33.9 % (30-36); Mean Corpuscular Hemoglobin 29.4 PG (26-34); Mean Corpuscular Volume 86.6 fL (80-100); Monocytes Absolute Auto 300 /uL (0-900); Monocytes Percent Auto 6.6 % (3-14); Neutrophils Absolute Auto 2500 /uL (1500-7000); Neutrophils Percent Auto 55.4 % (50-75); Platelet Count 199 X10^3/uL (150-400); Red Blood Cell Count 4.64 X10^6/uL (4.0-5.2); Red Cell Distribution Width 13.9 % (11.6-14.8); White Blood Cell Count 4.5 X10^3/uL (4.5-11.0)
[2023-09-29 12:57] LABS: Alanine Aminotransferase 20 IU/L (<35); Albumin 3.9 g/dL (3.5-5.0); Albumin Globulin Ratio 1.5 (1.0-2.8); Alkaline Phosphatase 67 U/L (38-126); Aspartate Aminotransferase 25 IU/L (14-36); BUN Creatinine Ratio 25.7 (6-22); Bilirubin Total 0.6 mg/dL (0.2-1.3); Blood Urea Nitrogen 18 mg/dL (7-17); Calcium 9.8 mg/dL (8.4-10.2); Carbon Dioxide 26 mmol/L (22-32); Chloride 106 mmol/L (98-107); Cholesterol 190 mg/dL (140-199); Estimated Glomerular Filt Rate > 60 mL/min (>60); Globulin 2.6 g/dL (1.7-4.1); Glucose 102 mg/dL (80-110); HDL Cholesterol 62 mg/dL (40-60); HEMOLYSIS < 15 (0-50); LDL Cholesterol Calculated 116 mg/dL (<100); Potassium 4.7 mmol/L (3.4-5.1); Sodium 138 mmol/L (137-145); Total Protein 6.5 g/dL (6.3-8.2); Triglycerides 59 mg/dL (35-150)
[2023-09-29 13:25] LABS: TSH w/ Reflex to FT4 2.78 uIU/mL (0.47-4.68)
[2023-10-01 17:52] LABS: Hep C Virus Ab w/Reflex Quant NEGATIVE s/c (NEGATIVE)
== END ==
PROVIDERS: Family Provider Family Medicine; PCP Family Medicine; Referring Provider Family Medicine; Visit Provider Family Medicine
DX: E78.2 Mixed hyperlipidemia (principal); M19.90 Unspecified osteoarthritis, unspecified site; I82.409 Acute embolism and thrombosis of unspecified deep veins of unspecified lower extremity
CPT/HCPCS: 36415; 80053; 80061; 84443; 85025; 86803

== ENCOUNTER → 2023-10-06 15:13 | Outpatient (CLI) | payer OTHER, SELFPAY ==
--- NOTE | 2023-10-06 | DI.MG.S_ITS ---
BILATERAL DIGITAL SCREENING MAMMOGRAM 3D/2D WITH CAD: 10/06/2023 CLINICAL: Routine screening. Family history breast cancer. Comparison is made to exams dated: 10/06/2022 mammogram, 10/05/2021 mammogram, and 09/29/2020 mammogram - [facility]. There are scattered areas of fibroglandular density in both breasts (category b / 25%-50% glandular tissue). Current study was also evaluated with a Computer Aided Detection (CAD) system. There is possible developing irregular architectural distortion in the right breast middle depth superior region seen on the mediolateral oblique view only. This is more prominent. No other significant masses, calcifications, or other findings are seen in either breast. IMPRESSION: INCOMPLETE: NEEDS ADDITIONAL IMAGING EVALUATION The possible developing irregular architectural distortion in the right breast is indeterminate. Additional views with possible ultrasound are recommended. Based on the Tyrer Cuzick model (a risk assessment model) the patient's lifetime risk is 4.4% and her 10 year risk is 0.0%. According to the ACR, ACS, and NCCN guidelines, an annual breast MRI exam along with mammogram is recommended if the patient's lifetime risk is 20% or greater. This exam was interpreted at Station ID: [id number]. NOTE: For mammograms, a report in lay terms will be sent to the patient. Approximately 15% of breast malignancies will not be visualized mammographically. In the management of a palpable breast mass, a negative mammogram must not discourage biopsy of a clinically suspicious lesion. Electronically Signed By: Chantal alvarado/domingo:10/07/2023 14:02:27 letter sent: Additional Imaging Needed ACR BI-RADS Category 0: Incomplete 3340F
== END ==
PROVIDERS: Family Provider Family Medicine; PCP Family Medicine; Referring Provider Family Medicine; Visit Provider Family Medicine
DX: Z12.31 Encounter for screening mammogram for malignant neoplasm of breast (principal); Z80.3 Family history of malignant neoplasm of breast
CPT/HCPCS: 77063; 77067

== ENCOUNTER → 2023-10-28 08:50 | Outpatient (CLI) | payer OTHER, SELFPAY ==
--- NOTE | 2023-10-28 | DI.MG.S_ITS ---
UNILATERAL RIGHT DIGITAL DIAGNOSTIC MAMMOGRAM 3D/2D WITH ADDITIONAL VIEWS: 10/28/2023 CLINICAL: Additional evaluation requested from prior study. Comparison is made to exams dated: 10/06/2023 mammogram, 10/06/2022 mammogram, and 10/05/2021 mammogram - [facility]. There are scattered areas of fibroglandular density in the right breast (category b / 25%-50% glandular tissue). The possible architectural distortion in the right breast middle depth superior region seen on the mediolateral oblique view only is not seen in additional views. No other significant masses or calcifications are seen in the breast. IMPRESSION: BENIGN There is no mammographic evidence of malignancy. Return to annual mammogram screening schedule is recommended. Based on the Tyrer Cuzick model (a risk assessment model) the patient's lifetime risk is 4.4% and her 10 year risk is 0.0%. According to the ACR, ACS, and NCCN guidelines, an annual breast MRI exam along with mammogram is recommended if the patient's lifetime risk is 20% or greater. This exam was interpreted at Station ID: [id number]. NOTE: For mammograms, a report in lay terms will be sent to the patient. Approximately 15% of breast malignancies will not be visualized mammographically. In the management of a palpable breast mass, a negative mammogram must not discourage biopsy of a clinically suspicious lesion. Electronically Signed By: Hanna condon/:10/28/2023 09:08:59 letter sent: Normal Exam ACR BI-RADS Category 2: Benign Finding(s) 3342F
== END ==
PROVIDERS: Family Provider Family Medicine; PCP Family Medicine; Referring Provider Family Medicine; Visit Provider Family Medicine
DX: R92.8 Other abnormal and inconclusive findings on diagnostic imaging of breast (principal); R30.0 Dysuria
CPT/HCPCS: 76642; 77065; 87077; 87086; 87186; G0279

== ENCOUNTER → 2023-10-28 09:29 | Outpatient (CLI) | payer OTHER, SELFPAY | PROVIDERS: Family Provider Family Medicine; PCP Family Medicine; Visit Provider Physician Assistant | DX: R30.0 Dysuria (principal) | CPT/HCPCS: 87077; 87086 ==

== ENCOUNTER → 2024-11-01 12:53 | Outpatient (CLI) | payer OTHER, SELFPAY ==
--- NOTE | 2024-11-01 12:54 | DI.MG.S_ITS ---
BILATERAL DIGITAL SCREENING MAMMOGRAM 3D/2D WITH CAD: 11/01/2024 CLINICAL: Routine screening. Family history of breast cancer. Comparison is made to exams dated: 10/28/2023 mammogram, 10/06/2023 mammogram, 10/06/2022 mammogram, and 10/05/2021 mammogram - [facility]. There are scattered areas of fibroglandular density (category b / 25%-50% glandular tissue). Current study was also evaluated with a Computer Aided Detection (CAD) system. No significant masses, calcifications, or other findings are seen in either breast. There has been no significant interval change. IMPRESSION: NEGATIVE There is no mammographic evidence of malignancy. A 1 year screening mammogram is recommended. Based on the Tyrer Cuzick model (a risk assessment model) the patient's lifetime risk is 4.0% and her 10 year risk is 0.0%. According to the ACR, ACS, and NCCN guidelines, an annual breast MRI exam along with mammogram is recommended if the patient's lifetime risk is 20% or greater. This exam was interpreted at Station ID: [id number]. NOTE: For mammograms, a report in lay terms will be sent to the patient. Approximately 15% of breast malignancies will not be visualized mammographically. In the management of a palpable breast mass, a negative mammogram must not discourage biopsy of a clinically suspicious lesion. Electronically Signed By: Shaun cline/domingo:11/01/2024 15:06:30 letter sent: Normal Exam ACR BI-RADS Category 1: Negative
== END ==
PROVIDERS: Family Provider Family Medicine; PCP Family Medicine; Referring Provider Family Medicine; Visit Provider Family Medicine
DX: Z12.31 Encounter for screening mammogram for malignant neoplasm of breast (principal); Z80.3 Family history of malignant neoplasm of breast
CPT/HCPCS: 77063; 77067

== ENCOUNTER → 2024-11-14 10:57 | Outpatient (CLI) | payer OTHER, SELFPAY ==
[2024-11-14 11:30] LABS: Add Manual Diff / Slide Review NO; Basophils Absolute Auto 0 /uL (0-100); Basophils Percent Auto 0.7 % (0-2); Eosinophils Absolute Auto 100 /uL (0-450); Eosinophils Percent Auto 1.3 % (2-4); Hematocrit 43.8 % (36-46); Hemoglobin 14.2 g/dL (12.0-16.0); Lymphocytes Absolute Auto 1700 /uL (1100-4500); Lymphocytes Percent Auto 39.3 % (25-40); Mean Corpuscular HGB Conc 32.4 % (30-36); Mean Corpuscular Hemoglobin 28.9 PG (26-34); Monocytes Absolute Auto 300 /uL (0-900); Monocytes Percent Auto 7.4 % (3-14); Neutrophils Absolute Auto 2300 /uL (1500-7000); Neutrophils Percent Auto 51.3 % (50-75); Platelet Count 199 X10^3/uL (150-400); Red Blood Cell Count 4.93 X10^6/uL (4.0-5.2); Red Cell Distribution Width 14.1 % (11.6-14.8); White Blood Cell Count 4.4 X10^3/uL (4.5-11.0)
[2024-11-14 11:48] LABS: Alanine Aminotransferase 22 IU/L (<35); Albumin 4.6 g/dL (3.5-5.0); Albumin Globulin Ratio 1.9 (1.0-2.8); Alkaline Phosphatase 64 U/L (38-126); Aspartate Aminotransferase 27 IU/L (14-36); Bilirubin Total 0.8 mg/dL (0.2-1.3); Blood Urea Nitrogen 19 mg/dL (7-17); Calcium 9.7 mg/dL (8.4-10.2); Carbon Dioxide 28 mmol/L (22-32); Chloride 106 mmol/L (98-107); Cholesterol 201 mg/dL (140-199); Estimated Glomerular Filt Rate > 60 mL/min (>60); Globulin 2.4 g/dL (1.7-4.1); Glucose 97 mg/dL (80-110); HDL Cholesterol 65 mg/dL (40-60); HEMOLYSIS < 15 (0-50); LDL Cholesterol Calculated 117 mg/dL (<100); Potassium 4.6 mmol/L (3.4-5.1); Sodium 141 mmol/L (137-145); Triglycerides 93 mg/dL (35-150)
[2024-11-14 12:17] LABS: TSH w/ Reflex to FT4 1.94 uIU/mL (0.47-4.68)
== END ==
PROVIDERS: Family Provider Family Medicine; PCP Family Medicine; Referring Provider Family Medicine; Visit Provider Family Medicine
DX: K21.9 Gastro-esophageal reflux disease without esophagitis (principal); E78.2 Mixed hyperlipidemia; M19.90 Unspecified osteoarthritis, unspecified site
CPT/HCPCS: 36415; 80053; 80061; 84443; 85025